=== PATIENT | male | born 1975 | race Two or more races ===

== ENCOUNTER 2017-07-08 15:18 | Emergency (ER) | payer OTHER ==
[~2017-07-08] VITALS: Ht 200.7 cm; Wt 103.0 kg
[~2017-07-08 15:18] MED LIST: ATARAX,VISTARIL25 MG PO; CELEXA20 MG PO
[2017-07-08] MEDS ORDERED: NORCO 5/3251 TABLET PO (18:22)
[2017-07-08] MEDS ORDERED: MOTRIN600 MG PO (18:22)
[2017-07-08 18:37] VITALS: BP 152/84
== END 2017-07-08 18:38 | disposition home or self-care (01) ==
LOC: EME 15:18
PROC: 3E0T3BZ Introduction of Anesthetic Agent into Peripheral Nerves and Plexi, Percutaneous Approach (ICD-10-PCS; principal; 2017-07-08)
DX: K02.9 Dental caries, unspecified (principal); F17.200 Nicotine dependence, unspecified, uncomplicated
CPT/HCPCS: 99281; 99283